=== PATIENT | female | born 1965 | race Caucasian/White ===

== ENCOUNTER 2018-01-25 08:16 | Emergency (ER) | payer OTHER ==
[~2018-01-25] VITALS: Ht 162.6 cm; Wt 74.8 kg
[~2018-01-25 08:16] MED LIST: ABILIFY10 MG PO; ABILIFY5 MG PO; LITHIUM CARBON300 M1 PO; LOTRISONE CREAM15 GM TOP
== END 2018-01-25 10:50 | disposition home or self-care (01) ==
LOC: ED 08:16
DX: F30.8 Other manic episodes (principal); R07.9 Chest pain, unspecified; F17.200 Nicotine dependence, unspecified, uncomplicated; Z79.899 Other long term (current) drug therapy
CPT/HCPCS: 80053; 80178; 81001; 84484; 85025; 96374; 99284

== ENCOUNTER 2022-02-26 10:29 | Emergency (ER) | payer OTHER ==
[~2022-02-26] VITALS: Ht 162.6 cm; Wt 74.8 kg
--- OUTSIDE RECORDS SUMMARY | 2022-02-26 10:32 | XMS ---
PreManage Notification: JUNITO THIBODEAUX [employer] Coordinator Events 1 event(s) in the past 18 months Most recent security events: Elopement at [facility] 02/02/2022 15:53 - Patient eloped before treatment completed. - Patient with suicidal and/or homicidal ideations eloped. - Patient eloped with IV in place. Details: PATIENT LWBS CRITERIA MET - [facility] - 2 Visits in 30 Days CARE PROVIDERS There are no care providers on record at this time. [facility] has no Care Guidelines for this patient. E.Dheeraj. VISIT COUNT (12 MO.) 2 [facility] H. TOTAL 2 NOTE: Visits indicate total known visits. ED/UCC VISIT TRACKING (12 MO.) 02/26/2022 10:30 [facility] [place] TYPE: Emergency COMPLAINT: - MEDICAL CLEARANCE 02/02/2022 15:53 [facility] [place] TYPE: Emergency COMPLAINT: - COLD SYMPTOMS INPATIENT VISIT TRACKING (12 MO.) No inpatient visits to display in this time frame [email or web address]
== END 2022-02-26 15:28 | disposition home or self-care (01) ==
LOC: ED 10:29
DX: F15.951 Other stimulant use, unspecified with stimulant-induced psychotic disorder with hallucinations (principal)
CPT/HCPCS: 80053; 81001; 84443; 85025; 99284; G0480; U0003

== ENCOUNTER 2022-02-27 17:31 | Emergency (ER) | payer OTHER ==
[~2022-02-27] VITALS: Ht 162.6 cm; Wt 54.9 kg
--- OUTSIDE RECORDS SUMMARY | 2022-02-27 17:34 | XMS ---
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 - Patient with suicidal and/or homicidal ideations eloped. - Patient eloped with IV in place. Details: PATIENT LWBS CRITERIA MET - [facility] - 2 Visits in 30 Days CARE PROVIDERS There are no care providers on record at this time. [facility] has no Care Guidelines for this patient. E.Dheeraj. VISIT COUNT (12 MO.) 3 [facility] H. TOTAL 3 NOTE: Visits indicate total known visits. ED/UCC VISIT TRACKING (12 MO.) 02/27/2022 17:32 [facility] [place] TYPE: Emergency COMPLAINT: - PSYCH 02/26/2022 10:30 [facility] [place] TYPE: Emergency COMPLAINT: - MEDICAL CLEARANCE 02/02/2022 15:53 [facility] [place] TYPE: Emergency COMPLAINT: - COLD SYMPTOMS INPATIENT VISIT TRACKING (12 MO.) No inpatient visits to display in this time frame [email or web address]
== END 2022-02-28 00:02 | disposition home or self-care (01) ==
LOC: ED 17:31
DX: Z00.8 Encounter for other general examination (principal); J45.909 Unspecified asthma, uncomplicated; F17.200 Nicotine dependence, unspecified, uncomplicated
CPT/HCPCS: 36415; 80053; 80178; 81001; 84443; 85025; 99283; G0480; J7030

== ENCOUNTER 2022-02-28 12:12 | Emergency (ER) | payer OTHER ==
[~2022-02-28] VITALS: Ht 162.6 cm; Wt 54.9 kg
--- OUTSIDE RECORDS SUMMARY | 2022-02-28 12:14 | XMS ---
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 - Patient with suicidal and/or homicidal ideations eloped. - Patient eloped with IV in place. Details: PATIENT LWBS CRITERIA MET - [facility] - 2 Visits in 30 Days CARE PROVIDERS There are no care providers on record at this time. [facility] has no Care Guidelines for this patient. E.Dheeraj. VISIT COUNT (12 MO.) 4 [facility] H. TOTAL 4 NOTE: Visits indicate total known visits. ED/UCC VISIT TRACKING (12 MO.) 02/28/2022 12:12 [facility] [place] TYPE: Emergency COMPLAINT: - INTOXICATION 02/27/2022 17:[address] [facility] [place] TYPE: Emergency COMPLAINT: - NEDICAL CLEARANCE 02/26/2022 10:[address] [facility] [place] TYPE: Emergency COMPLAINT: - MEDICAL CLEARANCE 02/02/2022 15:[address] [facility] [place] [place] TYPE: Emergency COMPLAINT: - COLD SYMPTOMS INPATIENT VISIT TRACKING (12 MO.) No inpatient visits to display in this time frame [id number]
== END 2022-02-28 13:59 | disposition home or self-care (01) ==
LOC: ED 12:12
DX: F29 Unspecified psychosis not due to a substance or known physiological condition (principal); J45.909 Unspecified asthma, uncomplicated; F17.200 Nicotine dependence, unspecified, uncomplicated
CPT/HCPCS: 99284

== ENCOUNTER 2022-05-21 19:10 | Emergency (ER) | payer OTHER ==
[~2022-05-21] VITALS: Ht 162.6 cm; Wt 54.9 kg
--- OUTSIDE RECORDS SUMMARY | 2022-05-21 19:12 | XMS ---
PreManage Notification: JUNITO THIBODEAUX Security [employer] Events 1 event(s) in the past 18 months Most recent security events: Elopement at [facility] 02/02/2022 15:53 - Patient eloped before treatment completed. - Patient with suicidal and/or homicidal ideations eloped. - Patient eloped with IV in place. Details: PATIENT LWBS CRITERIA MET - 6 ED Visits in 6 Months CARE PROVIDERS There are no care providers on record at this time. [facility] has no Care Guidelines for this patient. E.Dheeraj. VISIT COUNT (12 MO.) 6 [facility]. TOTAL 6 NOTE: Visits indicate total known visits. ED/UCC VISIT TRACKING (12 MO.) 05/21/2022 19:[address] [facility] [place] TYPE: Emergency COMPLAINT: - PSYCHOLOGICAL EVAL 03/03/2022 14:[address] [facility] [place] TYPE: Emergency COMPLAINT: - MEDICAL CLEARANCE 02/28/2022 12:[address] [facility] [place] TYPE: Emergency COMPLAINT: - INTOXICATION DIAGNOSES: - Unspecified psychosis not due to a substance or known physiological condition - Unspecified asthma, uncomplicated - Nicotine dependence, unspecified, uncomplicated 02/27/2022 17:[address] 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
[2022-05-21] MEDS ORDERED: QUETIAPINE FUM100 MG PO (19:26)
== END 2022-05-21 20:17 | disposition home or self-care (01) ==
LOC: ED 19:10
DX: F15.951 Other stimulant use, unspecified with stimulant-induced psychotic disorder with hallucinations (principal); F31.9 Bipolar disorder, unspecified; J45.909 Unspecified asthma, uncomplicated; F17.200 Nicotine dependence, unspecified, uncomplicated; Z79.899 Other long term (current) drug therapy
CPT/HCPCS: 36415; 80178; 84443; 85025; 99284; G0480

== ENCOUNTER 2025-04-02 10:49 | Emergency (ER) | payer OTHER ==
[~2025-04-02] VITALS: Ht 162.6 cm; Wt 50.9 kg
[~2025-04-02 10:49] MED LIST changes: +QUETIAPINE FUM100 MG PO
[2025-04-02] MEDS ORDERED: ADVIL200 MG NG (11:13)
[2025-04-02 12:35] LABS: BASOPHILS 0.2 % (0.1-1.2); EOSINOPHILS 0.3 % (0.7-5.8); LYMPHOCYTES 6.5 % (19.3-51.7); MCH 30.1 PG (25.6-32.2); MCHC 32.7 g/dL (32.2-35.5); MCV 91.9 fL (79.4-94.8); MONOCYTES 5.0 % (4.7-12.5); NEUTROPHILS 87.7 % (34.0-71.1); RBC 4.32 M/uL (3.93-5.22)
[2025-04-02 13:06] LABS: ALT (SGPT) 40.0 U/L (14-59); AST (SGOT) 40.0 U/L (15-37); GLOMERULAR FILTRATION RATE,EST 102.0 mL/min (>60); PROTEIN, TOTAL 6.8 g/dL (6.4-8.2); UREA NITROGEN 15.0 mg/dL (7-18)
[2025-04-02 14:26] LABS: BLOOD/HGB, URINE TRACE-I (Negative); KETONE, URINE NEGATIVE (Negative); LEUK ESTERASE, URINE MODERATE (negative); NITRITE, URINE NEGATIVE (negative)
[2025-04-02 14:32] LABS: BACTERIA, URINE RARE /hpf (negative); CASTS, URINE NONE SEEN \\lpf; CRYSTALS, URINE NONE SEEN (0-1+); EPITHELIAL CELLS, URINE SQUAMOUS 1+ /lpf (0-1+); REFLEX CULTURE, URINE Yes (No)
[2025-04-02 14:41] LABS: AMPHETAMINES, URINE POSITIVE (NEGATIVE); BARBITURATES, URINE NEGATIVE (NEGATIVE); BENZODIAZEPINE, URINE NEGATIVE (NEGATIVE); CANNABINOID, URINE NEGATIVE (NEGATIVE); COCAINE, URINE NEGATIVE (NEGATIVE); ECSTASY, URINE POSITIVE (NEGATIVE); FENTANYL, URINE NEGATIVE (NEGATIVE); METHADONE, URINE NEGATIVE (NEGATIVE); OPIATES, URINE NEGATIVE (NEGATIVE); OXYCODONE, URINE NEGATIVE (NEGATIVE); PHENCYCLIDINE, URINE NEGATIVE (NEGATIVE)
[2025-04-02] MEDS ORDERED: MACROBID 100 M100 MG PO (16:11)
[2025-04-02 17:34] VITALS: BP 127/64
== END 2025-04-02 17:34 | disposition home or self-care (01) ==
LOC: ED 10:49
PROVIDERS: Emergency Medicine
DX: N39.0 Urinary tract infection, site not specified (principal); J45.909 Unspecified asthma, uncomplicated; F17.200 Nicotine dependence, unspecified, uncomplicated; Z79.899 Other long term (current) drug therapy
CPT/HCPCS: 36415; 80053; 80307; 81001; 83735; 84484; 84703; 85025; 87088; 87502; 93005; 93010; 96365; 99285-25; J0696; U0002